=== PATIENT | female | born 1995 ===

== ENCOUNTER 2017-07-18 15:36 | Emergency (ER) | payer MEDICAID, OTHER ==
[2017-07-18 15:47] VITALS: RESP 18
--- NOTE | 2017-07-18 16:22 | C.PDOC ---
History Of Present Illness Patient is a 22 y/o female with a past medical history of asthma, fibromyalgia, depression, suicidal ideation, and migraines, who presents complaining of intermittent weakness for the past 8 months. States she recently moved to [place] to be improve her healthcare. Ever since 8 months ago patient has been having paralysis, first of her lower extremities and now including her upper extremities. She states symptoms come and go spontaneously. By the time she arrived at the ER today she felt she couldnt move from the neck down. On arrival patient is not complaining of pain. Denies any fever, chills, nausea, vomiting, chest pain, SOB, or abdominal pain. She previously was evaluated by a neurologist in [place]. Took Cymbalta at noon today with no improvement. States the last time she felt suicidal was last year. Currently denies suicidal or homicidal ideation. PMD: None Time Seen by Provider: 07/18/17 16:19 Chief Complaint (Nursing): Anxiety History Per: Patient History/Exam Limitations: no limitations Onset/Duration Of Symptoms: Days (x 8 months) Current Symptoms Are (Timing): Still Present Associated Symptoms: denies: Suicidal Thoughts Past Medical History Reviewed: Historical Data, Nursing Documentation, Vital Signs Vital Signs: Last Vital Signs Temp 98.5 F 07/18/17 15:41 Pulse 84 07/18/17 15:41 Resp 18 07/18/17 15:41 BP 145/90 07/18/17 15:41 Pulse Ox 95 07/18/17 17:05 - Medical History PMH: Asthma, Depression, Fibromyalgia, Migraine Surgical History: Family History: States: No Known Family Hx - Social History Hx Tobacco Use: No Hx Alcohol Use: No Hx Substance Use: Yes (marijuana) - Immunization History Hx Tetanus Toxoid Vaccination: No Hx Influenza Vaccination: No Hx Pneumococcal Vaccination: No Review Of Systems Except As Marked, All Systems Reviewed And Found Negative. Constitutional: Negative for: Fever, Chills Cardiovascular: Negative for: Chest Pain Respiratory: Negative for: Shortness of Breath Gastrointestinal: Negative for: Nausea, Vomiting, Abdominal Pain Neurological: Positive for: Weakness (paralysis of all extremities intermittently). Negative for: Numbness Psych: Negative for: Suicidal ideation Physical Exam - Physical Exam Appears: Non-toxic, No Acute Distress, Other (Calm, conversational, cooperative) Skin: Normal Color, Warm, Dry Head: Atraumatic Eye(s): bilateral: Normal Inspection, PERRL, EOMI Nose: Normal Neck: Normal, Supple Chest: Symmetrical Cardiovascular: Rhythm Regular, No Murmur Respiratory: Normal Breath Sounds (clear to auscultation), No Rales, No Rhonchi , No Wheezing Gastrointestinal/Abdominal: Soft, No Tenderness, No Distention Extremity: No Pedal Edema, No Deformity, Other (Patient has sensation. When arm is raised, she supports it and puts it down gently. Able to move lower extremities) Neurological/Psych: Oriented x3, Normal Speech, Normal Sensation Gait: Unable To Assess Extremity: Upper: No Drift (Unable to assess), Lower: No Drift ED Course And Treatment - Laboratory Results Result Diagrams: 07/18/17 17:18 07/18/17 17:18 O2 Sat by Pulse Oximetry: 95 (RA) Pulse Ox Interpretation: Normal Medical Decision Making Medical Decision Making: Initial Impression: Somatization Time: 16:55 Initial Plan: * Alcohol serum * Urine drug screen * CMP * CBC * Urine HCG, qualitative * Urinalysis * Ativan 1 mg PO * Will discuss with make up worker/psychiatry Disposition Counseled Patient/Family Regarding: Need For Followup - Disposition Referrals: Oliverio Golden MD [Staff Provider] - Disposition: HOME/ ROUTINE Disposition Time: 18:23 Condition: STABLE Additional Instructions: Please follow up with psychiatry and neurology as indicated. Forms: [facility] (Citizen [place]), General Discharge Instructions, Work Excuse - POA Present On Arrival: None - Clinical Impression Clinical Impression: Anxiety - Scribe Statement The provider has reviewed the documentation as recorded by the Scribe (Kamilla Lane) Provider Attestation: All medical record entries made by the Scribe were at my direction and personally dictated by me. I have reviewed the chart and agree that the record accurately reflects my personal performance of the history, physical exam, medical decision making, and the department course for this patient. I have also personally directed, reviewed, and agree with the discharge instructions and disposition.
[2017-07-18 17:21] LABS: BASO % 0.2 % (0.0-2.0); EOS % 0.1 % (0.0-4.0); HEMOGLOBIN 11.7 g/dL (11.0-16.0); LYMPH # 1.5 K/uL (1.0-4.3); LYMPH % 13.3 % (20.0-40.0); MEAN CELL VOLUME 83.8 fL (81.0-99.0); MEAN CORPUSCULAR HEMOGLOBIN 28.1 pg (27.0-31.0); MEAN CORPUSCULAR HGB CONC 33.6 g/dL (33.0-37.0); MONO # 0.6 K/uL (0.0-0.8); MONO % 4.8 % (0.0-10.0); NEUT # 9.3 K/uL (1.8-7.0); NEUT % 81.6 % (50.0-75.0); RBC 4.16 Mil/uL (3.80-5.20); WHITE BLOOD COUNT 11.4 K/uL (4.8-10.8)
[2017-07-18 17:33] LABS: ALB/GLOB RATIO 1.2 (1.0-2.1); ALBUMIN 4.3 g/dL (3.5-5.0); ALT/SGPT 32 U/L (9-52); AST/SGOT 20 U/L (14-36); BLOOD UREA NITROGEN 11 mg/dL (7-17); CALCIUM 9.4 mg/dl (8.6-10.4); GFR AFRICAN-AMERICAN > 60; GFR NON-AFRICAN AMERICAN > 60
[2017-07-18 17:47] LABS: HCG,QUALITATIVE URINE NEGATIVE (NEGATIVE)
[2017-07-18 17:49] LABS: SQUAMOUS EPITHIAL 1 /hpf (0-5); URINE BACTERIA RARE (<OCC); URINE BILIRUBIN NEGATIVE (NEGATIVE); URINE BLOOD NEGATIVE (NEGATIVE); URINE CLARITY Hazy (Clear); URINE COLOR Yellow (YELLOW); URINE GLUCOSE (UA) NORMAL (Normal); URINE LEUKOCYTE ESTERASE NEG Leu/uL (Negative); URINE NITRATE NEGATIVE (NEGATIVE); URINE PROTEIN 1+ mg/dL (NEGATIVE); URINE UROBILINOGEN NORMAL mg/dL (0.2-1.0)
[2017-07-18 18:01] LABS: BARBITURATES, UR NEGATIVE (NEGATIVE); BENZODIAZEPINES, UR NEGATIVE (NEGATIVE); OPIATES, UR NEGATIVE (NEGATIVE); PHENCYCLIDINE, UR NEGATIVE (NEGATIVE)
[2017-07-18 18:50] VITALS: BP 116/68; PULSE 92; TEMP 98.3; O2SAT 98
== END 2017-07-18 18:42 | disposition home or self-care (01) ==
LOC: C.ER 15:36
DX: F41.9 Anxiety disorder, unspecified (principal)
CPT/HCPCS: 80053; 81001; 84703; 85025; 99284; G0480

== ENCOUNTER 2017-08-29 14:27 | Emergency (ER) | payer MEDICAID, OTHER ==
[2017-08-29 14:53] VITALS: TEMP 97.4; O2SAT 100
[2017-08-29 17:03] LABS: SQUAMOUS EPITHIAL 3 /hpf (0-5); URINE BACTERIA RARE (<OCC); URINE BILIRUBIN NEGATIVE (NEGATIVE); URINE BLOOD 1+ (NEGATIVE); URINE CLARITY Hazy (Clear); URINE COLOR Yellow (YELLOW); URINE GLUCOSE (UA) NORMAL (Normal); URINE LEUKOCYTE ESTERASE 1+ Leu/uL (Negative); URINE PROTEIN NEGATIVE (NEGATIVE); URINE UROBILINOGEN NORMAL mg/dL (0.2-1.0)
[2017-08-29 17:06] LABS: HCG,QUALITATIVE URINE NEGATIVE (NEGATIVE)
[2017-08-29 17:13] LABS: BARBITURATES, UR NEGATIVE (NEGATIVE); BENZODIAZEPINES, UR NEGATIVE (NEGATIVE); OPIATES, UR NEGATIVE (NEGATIVE); PHENCYCLIDINE, UR NEGATIVE (NEGATIVE)
--- NOTE | 2017-08-29 17:40 | C.PDOC ---
History Of Present Illness 22 y/o female ,w/ PMhx of fibromyalgia, presents to the ER complaining of chronic generalized body pain. Patient states that she has been by multiple physicians for her pain.She was diagnosed with fibromyalgia and given medications including Cymbalta. Patient reports that she does not feel improvement with the the medications. Patient denies having fever, chills, nausea, and vomiting. Time Seen by Provider: 08/29/17 15:47 Chief Complaint (Nursing): Pain, Chronic History Per: Patient History/Exam Limitations: no limitations Onset/Duration Of Symptoms: Days Current Symptoms Are (Timing): Still Present Severity: Moderate Past Medical History Reviewed: Historical Data, Nursing Documentation, Vital Signs Vital Signs: Last Vital Signs Temp 97.4 F L 08/29/17 14:51 Pulse 112 H 08/29/17 17:51 Resp 18 08/29/17 17:51 BP 106/72 08/29/17 17:51 Pulse Ox 100 08/29/17 18:16 - Medical History PMH: Asthma, Depression, Fibromyalgia, Migraine Denies: Diabetes, Hepatitis, HIV, HTN, Seizures, Sexually Transmitted Disease Surgical History: Family History: States: No Known Family Hx - Social History Hx Tobacco Use: No Hx Alcohol Use: No Hx Substance Use: Yes (marijuana) - Immunization History Hx Tetanus Toxoid Vaccination: No Hx Influenza Vaccination: No Hx Pneumococcal Vaccination: No Review Of Systems Except As Marked, All Systems Reviewed And Found Negative. Constitutional: Positive for: Other (generalized body pain). Negative for: Fever, Chills Physical Exam - Physical Exam Appears: Non-toxic, No Acute Distress Skin: Normal Color, Warm, Dry Head: Atraumatic, Normacephalic Eye(s): bilateral: Normal Inspection Nose: Normal Oral Mucosa: Moist Neck: Supple Chest: Symmetrical Cardiovascular: Rhythm Regular Respiratory: Normal Breath Sounds, No Rales, No Rhonchi, No Wheezing Gastrointestinal/Abdominal: Normal Exam, Soft, No Tenderness Back: Normal Inspection, No CVA Tenderness Neurological/Psych: Oriented x3, Normal Speech ED Course And Treatment O2 Sat by Pulse Oximetry: 100 (RA) Pulse Ox Interpretation: Normal Medical Decision Making Medical Decision Making: Plan: --Motrin PO --Tylenol PO --Valium PO --UDS --UA Disposition Counseled Patient/Family Regarding: Diagnosis, Need For Followup, Rx Given - Disposition Referrals: [facility] [Outside] Disposition: HOME/ ROUTINE Disposition Time: 17:39 Condition: STABLE Prescriptions: diaZEpam [Valium] 5 mg PO TID #12 tab Ibuprofen [Motrin] 600 mg PO TID #15 tab Instructions: Fibromyalgia (DC) Forms: General Discharge Instructions, [facility] (Tajik), Work Excuse - POA Present On Arrival: None - Clinical Impression Clinical Impression: Fibromyalgia - Scribe Statement The provider has reviewed the documentation as recorded by the Claudia Oshea Provider Attestation: All medical record entries made by the Claudia were at my direction and personally dictated by me. I have reviewed the chart and agree that the record accurately reflects my personal performance of the history, physical exam, medical decision making, and the department course for this patient. I have also personally directed, reviewed, and agree with the discharge instructions and disposition.
[2017-08-29 17:52] VITALS: BP 106/72; PULSE 112; RESP 18
== END 2017-08-29 17:52 | disposition home or self-care (01) ==
LOC: C.ER 14:27
DX: M79.7 Fibromyalgia (principal)

== ENCOUNTER 2017-11-14 14:33 | Emergency (ER) | payer MEDICAID, OTHER ==
[2017-11-14 14:55] VITALS: BP 113/72; PULSE 83; TEMP 98.4; O2SAT 99
--- NOTE | 2017-11-14 15:35 | C.PDOC ---
History Of Present Illness 22 year old female, whose PMHx includes Asthma and Fibromyalgia, presents to the ED for evaluation of dizziness. states she has asthma and has been using her pump. Patient also reports mild dizziness and is unsure if she is . Patient and her son (also a patient in the ED) reside in a alf home. She denies fever, chills, vomiting. Time Seen by Provider: 11/14/17 15:10 Chief Complaint (Nursing): Dizziness/Lightheaded History Per: Patient History/Exam Limitations: no limitations Onset/Duration Of Symptoms: Days Current Symptoms Are (Timing): Still Present Additional History Per: Patient Past Medical History Reviewed: Historical Data, Nursing Documentation, Vital Signs Vital Signs: Last Vital Signs Temp 98.4 F 11/14/17 14:51 Pulse 83 11/14/17 14:51 Resp 20 11/14/17 14:51 BP 113/72 11/14/17 14:51 Pulse Ox 99 11/14/17 15:50 - Medical History PMH: Asthma, Depression, Fibromyalgia, Migraine Denies: Diabetes, Hepatitis, HIV, HTN, Seizures, Sexually Transmitted Disease Surgical History: Family History: States: Unknown Family Hx - Social History Hx Tobacco Use: No Hx Alcohol Use: No Hx Substance Use: Yes (marijuana) - Immunization History Hx Tetanus Toxoid Vaccination: No Hx Influenza Vaccination: No Hx Pneumococcal Vaccination: No Review Of Systems Constitutional: Negative for: Fever, Chills Respiratory: Positive for: Cough, Other (asthma exacerbation ) Gastrointestinal: Negative for: Vomiting Neurological: Positive for: Dizziness Physical Exam - Physical Exam Appears: Non-toxic, No Acute Distress Skin: Normal Color, Warm, Dry Head: Atraumatic, Normacephalic Eye(s): bilateral: Normal Inspection Ear(s): Bilateral: Normal Nose: Normal, No Discharge Oral Mucosa: Moist Throat: Normal, No Erythema, No Exudate Neck: Supple Chest: Symmetrical, No Deformity, No Tenderness Cardiovascular: Rhythm Regular, No Murmur Respiratory: Normal Breath Sounds, No Rales, No Rhonchi, No Wheezing Extremity: Normal ROM, Capillary Refill (less than 2 seconds ) Neurological/Psych: Oriented x3, Normal Speech, Normal Cognition ED Course And Treatment - Laboratory Results Result Diagrams: 11/14/17 16:42 11/14/17 16:42 O2 Sat by Pulse Oximetry: 99 (on RA) Pulse Ox Interpretation: Normal Medical Decision Making Medical Decision Making: Progress: Bloodwork and urinalysis ordered and reviewed. in er pt noted to be , iup confirmed, no fhr, case discussed with dr alejandor, will need outpt for early preg vs demise. updated pt. no bleeding in er. lungs cta. no active asthma exacerbation. Disposition - Disposition Referrals: [facility] [Outside] [facility] [Outside] [facility] [Outside] Disposition: HOME/ ROUTINE Disposition Time: 03:00 Condition: STABLE Additional Instructions: please follow up with your doctor, you will need repeat testing with obgyn to monitor your fetus. return to er with any worsening symptoms or concerns. Instructions: Threatened Miscarriage Forms: [employer] (Ukrainian) - Clinical Impression Clinical Impression: Dizziness
[2017-11-14 15:55] LABS: SQUAMOUS EPITHIAL 2 /hpf (0-5); URINE BACTERIA RARE (<OCC); URINE BILIRUBIN NEGATIVE (NEGATIVE); URINE BLOOD NEGATIVE (NEGATIVE); URINE CLARITY Hazy (Clear); URINE COLOR Yellow (YELLOW); URINE GLUCOSE (UA) NORMAL (Normal); URINE LEUKOCYTE ESTERASE TRACE Leu/uL (Negative); URINE PROTEIN NEGATIVE (NEGATIVE); URINE UROBILINOGEN NORMAL mg/dL (0.2-1.0)
[2017-11-14 16:50] LABS: BASO # 0.1 K/uL (0.0-0.2); BASO % 0.6 % (0.0-2.0); EOS # 0.1 K/uL (0.0-0.7); EOS % 1.6 % (0.0-4.0); LYMPH # 2.2 K/uL (1.0-4.3); MEAN CELL VOLUME 85.7 fL (81.0-99.0); MEAN CORPUSCULAR HEMOGLOBIN 29.4 pg (27.0-31.0); MEAN CORPUSCULAR HGB CONC 34.3 g/dL (33.0-37.0); MEAN PLATELET VOLUME 7.9 fL (7.2-11.7); MONO # 0.5 K/uL (0.0-0.8); MONO % 5.7 % (0.0-10.0); NEUT # 5.6 K/uL (1.8-7.0); NEUT % 66.1 % (50.0-75.0); RBC 3.76 Mil/uL (3.80-5.20); RED CELL DISTRIBUTION WIDTH 13.7 % (11.5-14.5); WHITE BLOOD COUNT 8.5 K/uL (4.8-10.8)
[2017-11-14 17:03] LABS: ALB/GLOB RATIO 1.5 (1.0-2.1); ALBUMIN 4.2 g/dL (3.5-5.0); ALT/SGPT 28 U/L (9-52); AST/SGOT 20 U/L (14-36); BLOOD UREA NITROGEN 8 mg/dL (7-17); GFR AFRICAN-AMERICAN > 60; GFR NON-AFRICAN AMERICAN > 60
[2017-11-14 17:18] LABS: INR 1.2
[2017-11-14] MEDS ORDERED: Potassium Chloride 20 mEq ER Tab PO STA (17:25)
[2017-11-14] MEDS ORDERED: Potassium Chloride 20 mEq ER Tab PO ONE (17:51)
--- NOTE | 2017-11-14 18:02 | US ---
PROCEDURE: OB Pelvic Ultrasound HISTORY: and abd pain LMP: 10/10/2017 COMPARISON: None available. FINDINGS: UTERUS: Gestational sac: Single intrauterine gestation. Measures 0.7 cm Yolk sac: Not visualized pole: [place]-rump length measures 0.3 cm compatible with estimated gestational age of 5 weeks, 6 days Heart rate: Not yet identified. age (Ultrasound estimated): Five weeks, 6 days Tatianna-gestational hemorrhage: None. Date of delivery (Ultrasound estimated) : Uterus measures 8.5 x 5.1 x 5.5 cm. Normal in size and appearance. CERVIX: Measures 3.2 cm. Long and closed. No cervical abnormality seen. RIGHT OVARY: Measures 4.9 x 3.4 x 4.3 cm. Multiple cysts/follicles, the largest measures 2.8 x 2.5 x 2.9 cm. Normal flow. LEFT OVARY: Measures 2.5 x 1.9 x 2.2 cm. No solid mass. Normal flow. FREE FLUID: None. OTHER FINDINGS: None. IMPRESSION: Intrauterine gestational sac with possible pole measuring up to 3 mm compatible with estimated gestational age of 5 weeks, 6 days. heart rate not yet detected. Findings may represent early normal/ abnormal . Close clinical follow-up with serial pelvic sonography and serum beta HCG levels is recommended.
[2017-11-14 18:51] VITALS: RESP 18
== END 2017-11-14 18:51 | disposition home or self-care (01) ==
LOC: C.ER 14:33
DX: R42 Dizziness and giddiness (principal)

== ENCOUNTER 2018-01-02 11:44 | Emergency (ER) | payer OTHER ==
[2018-01-02 11:57] VITALS: O2SAT 98
[2018-01-02 13:19] LABS: BASO % 0.3 % (0.0-2.0); EOS # 0.1 K/uL (0.0-0.7); EOS % 0.8 % (0.0-4.0); HEMOGLOBIN 12.1 g/dL (11.0-16.0); LYMPH # 1.9 K/uL (1.0-4.3); LYMPH % 23.9 % (20.0-40.0); MEAN CELL VOLUME 86.9 fL (81.0-99.0); MEAN CORPUSCULAR HEMOGLOBIN 29.6 pg (27.0-31.0); MEAN CORPUSCULAR HGB CONC 34.1 g/dL (33.0-37.0); MEAN PLATELET VOLUME 7.7 fL (7.2-11.7); MONO # 0.3 K/uL (0.0-0.8); MONO % 4.1 % (0.0-10.0); NEUT # 5.5 K/uL (1.8-7.0); NEUT % 70.9 % (50.0-75.0); NRBC % 0.1 % (0.0-2.0); RBC 4.08 Mil/uL (3.80-5.20); RED CELL DISTRIBUTION WIDTH 13.7 % (11.5-14.5); WHITE BLOOD COUNT 7.8 K/uL (4.8-10.8)
[2018-01-02 13:26] LABS: URINE BILIRUBIN NEGATIVE (NEGATIVE); URINE BLOOD NEGATIVE (NEGATIVE); URINE CLARITY Clear (Clear); URINE COLOR YELLOW (YELLOW); URINE GLUCOSE (UA) NEGATIVE (Normal); URINE LEUKOCYTE ESTERASE NEGATIVE Leu/uL (Negative); URINE PROTEIN NEGATIVE (NEGATIVE); URINE UROBILINOGEN 0.2 mg/dL (0.2-1.0)
[2018-01-02 13:34] LABS: ALB/GLOB RATIO 1.3 (1.0-2.1); ALT/SGPT 21 U/L (9-52); AST/SGOT 18 U/L (14-36); BLOOD UREA NITROGEN 6 mg/dL (7-17); GFR NON-AFRICAN AMERICAN > 60
--- NOTE | 2018-01-02 14:15 | US ---
Renal ultrasound History: Urinary tract infection. Bilateral flank pain. Comparison: None available. Technique: Real-time sonography was performed through the kidneys. Findings: Right kidney: 11.9 x 5.6 x 4.2 centimeters. Normal echogenicity. No calculi or hydronephrosis. Left Kidney: 12.7 x 4.8 x 5.1 centimeters. Normal echogenicity. No calculi or hydronephrosis. Visualized aorta grossly preserved. Underdistended urinary bladder limits evaluation. Impression: Unremarkable sonographic evaluation of the kidneys.
--- NOTE | 2018-01-02 14:20 | US ---
Pelvic ultrasound History: Pelvic pain. Suprapubic pain. Dysuria. Comparison: None available. Technique: Real-time sonography was performed through the pelvis utilizing transabdominal technique. Findings: Uterus: 12.2 x 9.4 x 10.9 centimeters. Normal echogenicity. Anteverted. Cervix measures 3.1 centimeters. Intrauterine with crown-rump length measuring 5.1 centimeters corresponding to a gestational age of 11 weeks and 6 days. Yolk sac identified. heart rate of 148 beats per minute. Right ovary: 5.8 x 3.2 x 4.8 centimeters. Normal flow. Hypoechoic cysts measuring 3.9 x 2.4 x 2.5 centimeters and 2.3 x 2.1 x 2.2 centimeters respectively. Left ovary: 2.8 x 1.2 x 2.6 centimeters. Normal flow. Impression: Intrauterine corresponding to a gestational age of 11 weeks 6 days by crown-rump length of 5.1 centimeters. heart rate of 148 beats per minute. Right ovarian cysts measuring up to 3.9 x 2.3 centimeters respectively. Limited 1st trimester ultrasound for viability purposes only. Continued interval followup with serial ultrasound, serial HCG levels, and gynecological consultation would be helpful if clinically indicated.
[2018-01-02 15:19] VITALS: BP 113/63; PULSE 74; RESP 18; TEMP 98.9
--- NOTE | 2018-01-02 15:19 | C.PDOC ---
History Of Present Illness 22 y/o female patient presents to the ED with c/o a UTI for the past two weeks. Patient is 12 weeks ; ( A1). She reports that symptoms have worsened after completing course of antibiotics. She is experiencing constant suprapubic pain associated with bilateral flank pain. Denies fever, trauma, vaginal bleeding or vaginal discharge. Time Seen by Provider: 01/02/18 12:49 Chief Complaint (Nursing): Female Genitourinary History Per: Patient History/Exam Limitations: no limitations Current Symptoms Are (Timing): Still Present Severity: Mild Pain Scale Rating Of: 3 Quality Of Discomfort: "Pain" Associated Symptoms: Other (suprapubic pain (+) bilateral flank pain ). denies : Fever, Chills, Diarrhea Alleviating Factors: None Recent travel outside of the [place]: No : 3 Para: 1 Miscarriage: 1 Past Medical History Reviewed: Historical Data, Nursing Documentation, Vital Signs Vital Signs: Last Vital Signs Temp 98.9 F 01/02/18 15:16 Pulse 74 01/02/18 15:16 Resp 18 01/02/18 15:16 BP 113/63 01/02/18 15:16 Pulse Ox 98 01/02/18 21:31 - Medical History PMH: Asthma, Depression, Fibromyalgia, Migraine Surgical History: Family History: States: Unknown Family Hx - Social History Hx Tobacco Use: No Hx Alcohol Use: No Hx Substance Use: Yes (marijuana) - Immunization History Hx Tetanus Toxoid Vaccination: No Hx Influenza Vaccination: No Hx Pneumococcal Vaccination: No Review Of Systems Constitutional: Negative for: Fever, Chills, Sweats Gastrointestinal: Positive for: Abdominal Pain (suprapubic), Other ((+) flank pain bilaterally). Negative for: Nausea, Vomiting, Diarrhea Genitourinary: Negative for: Frequency, Vaginal Discharge, Vaginal Bleeding Physical Exam - Physical Exam Appears: No Acute Distress Skin: Warm, Dry Head: Atraumatic, Normacephalic Eye(s): bilateral: PERRL, EOMI Oral Mucosa: Moist Neck: Supple Chest: Symmetrical Cardiovascular: Rhythm Regular Respiratory: No Rales, No Rhonchi, Other (Clear to auscultation) Gastrointestinal/Abdominal: Soft, No Tenderness, No Distention, No Guarding Back: No CVA Tenderness Extremity: Normal ROM, No Tenderness Extremity: Bilateral: Atraumatic Neurological/Psych: Oriented x3, Other (Patient is alert and oriented x3.) ED Course And Treatment - Laboratory Results Result Diagrams: 01/02/18 13:09 01/02/18 13:09 O2 Sat by Pulse Oximetry: 98 (RA) Pulse Ox Interpretation: Normal - Other Rad Renal US Interpretation: Unremarkable sonographic evaluation of the kidneys. - CT Scan/US US Obstetric Other Rad Studies (CT/US): Read By Radiologist CT/US Interpretation: Intrauterine corresponding to a gestational age of 11 weeks 6 days by crown-rump length of 5.1 centimeters. heart rate of 148 beats per minute. Right ovarian cysts measuring up to 3.9 x 2.3 centimeters respectively. Limited 1st trimester ultrasound for viability purposes only. Continued interval followup with serial ultrasound, serial HCG levels, and gynecological consultation would be helpful if clinically indicated. Progress Note: Physical exam was unremarkable. UA, Urine Culture, Renal US, Pelvic US, labs and tylenol ordered. During re-evaluation, patient notes that symptoms resolved and was advised to follow up with PCP/OBGYN. She was advised to return to the ED, if symptoms worsen or persist. Disposition - Disposition Referrals: [facility] [Outside] [place] [employer] [facility] [Outside] Disposition: HOME/ ROUTINE Disposition Time: 15:16 Condition: GOOD Additional Instructions: Follow up with the OBGYN within 1-2 days, Return if worsened. Prescriptions: Acetaminophen [Tylenol] 325 mg PO Q6 PRN #30 tab PRN Reason: Pain, Mild (1-3) Instructions: Low Back Pain (DC) Forms: [facility] (Pashto) - Clinical Impression Clinical Impression: Back pain, Abdominal pain - PA / WIRE SPOOLER / Resident Statement MD/DO has reviewed & agrees with the documentation as recorded. - Scribe Statement The provider has reviewed the documentation as recorded by the Scribe (Tim Gonzalez) All medical record entries made by the Scribe were at my direction and personally dictated by me. I have reviewed the chart and agree that the record accurately reflects my personal performance of the history, physical exam, medical decision making, and the department course for this patient. I have also personally directed, reviewed, and agree with the discharge instructions and disposition.
== END 2018-01-02 15:30 | disposition home or self-care (01) ==
LOC: C.ER 11:44
DX: O26.91 Pregnancy related conditions, unspecified, first trimester (principal); M54.9 Dorsalgia, unspecified; R10.9 Unspecified abdominal pain; Z3A.11 11 weeks gestation of pregnancy

== ENCOUNTER 2018-01-25 20:17 | Emergency (ER) | payer OTHER ==
[2018-01-25 20:23] VITALS: O2SAT 100
[2018-01-25 20:41] LABS: BASO # 0.1 K/uL (0.0-0.2); BASO % 0.6 % (0.0-2.0); EOS # 0.1 K/uL (0.0-0.7); HEMOGLOBIN 12.2 g/dL (11.0-16.0); LYMPH # 2.9 K/uL (1.0-4.3); LYMPH % 32.4 % (20.0-40.0); MEAN CELL VOLUME 85.7 fL (81.0-99.0); MEAN CORPUSCULAR HEMOGLOBIN 30.2 pg (27.0-31.0); MEAN CORPUSCULAR HGB CONC 35.2 g/dL (33.0-37.0); MEAN PLATELET VOLUME 7.4 fL (7.2-11.7); MONO # 0.5 K/uL (0.0-0.8); MONO % 5.8 % (0.0-10.0); NEUT # 5.4 K/uL (1.8-7.0); NEUT % 60.2 % (50.0-75.0); NRBC % 0.1 % (0.0-2.0); RBC 4.03 Mil/uL (3.80-5.20); RED CELL DISTRIBUTION WIDTH 13.1 % (11.5-14.5)
--- NOTE | 2018-01-25 20:54 | C.PDOC ---
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 She reports being 15 weeks .The patient had an ultrasound done on that showed an intrauterine with heart. She has a . The patient admits to clots within the vaginal bleeding and associated pelvic cramping. She denies any other symptoms at this time. 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 EGA 15 WKS. S/P US 01/20 +IUP W FH. . +CLOTS, PELVIC CRAMPING. NO OTHER ASSOC SX EXAM NAD NONTOXIC HEENT NO PALLOR ABD NEG REMAINDER NEG Time Seen by Provider: 01/25/18 20:25 Chief Complaint (Nursing): Female Genitourinary History Per: Patient History/Exam Limitations: no limitations Onset/Duration Of Symptoms: Hrs Current Symptoms Are (Timing): Still Present Associated Symptoms: denies: Fever, Nausea, Vomiting Recent travel outside of the [place]: No : 3 Para: 1 Past Medical History Reviewed: Historical Data, Nursing Documentation, Vital Signs Vital Signs: Last Vital Signs Temp 98.6 F 01/25/18 22:24 Pulse 73 01/25/18 22:24 Resp 18 01/25/18 22:24 BP 116/60 01/25/18 22:24 Pulse Ox 100 01/25/18 22:54 - Medical History PMH: Asthma, Depression, Fibromyalgia, Migraine Denies: Diabetes, Hepatitis, HIV, HTN, Seizures, Sexually Transmitted Disease Surgical History: Family History: States: Unknown Family Hx - Social History Hx Tobacco Use: No Hx Alcohol Use: No Hx Substance Use: No - Immunization History Hx Tetanus Toxoid Vaccination: No Hx Influenza Vaccination: No Hx Pneumococcal Vaccination: No Review Of Systems Except As Marked, All Systems Reviewed And Found Negative. Constitutional: Negative for: Fever Gastrointestinal: Negative for: Nausea, Vomiting Genitourinary: Positive for: Vaginal Bleeding (with clots), Pelvic Pain ( cramping) Physical Exam - Physical Exam Appears: Non-toxic, No Acute Distress Skin: Normal Color, Warm, No Other (Pallor) Head: Atraumatic, Normacephalic Eye(s): bilateral: PERRL, EOMI Ear(s): Bilateral: Normal Oral Mucosa: Moist Neck: Normal ROM Chest: Symmetrical Cardiovascular: Rhythm Regular, No Murmur Respiratory: No Rales, No Rhonchi, No Wheezing, Other (NARD) Gastrointestinal/Abdominal: Bowel Sounds, Soft, No Tenderness Extremity: Normal ROM Extremity: Bilateral: Atraumatic, Normal Color And Temperature, Normal ROM Pulses: Left Radial: Normal, Right Radial: Normal Neurological/Psych: Oriented x3, Normal Speech Gait: Steady ED Course And Treatment - Laboratory Results Result Diagrams: 01/25/18 20:37 01/25/18 20:37 O2 Sat by Pulse Oximetry: 100 (RA) Pulse Ox Interpretation: Normal - CT Scan/US Uterus Other Rad Studies (CT/US): Read By Radiologist, Radiology Report Reviewed CT/US Interpretation: IMPRESSION: 1. Single living intrauterine . 2. Gestational age 15 weeks 3 days RILEY 07/16/2018. 3. cervix measures 3.1 cm Progress - Re-Evaluation Re-evaluation Note: 01/25/18 22:31 - Data Reviewed Data Reviewed: Lab, Diagnostic imaging, Old records Medical Decision Making Medical Decision Making: Impression: 23 y/o female, 15 weeks , with vaginal bleeding and pelvic cramping Plan: -BBK -HCG -CMP -CBC -UA -Pelvis Ultrasound -Transvaginal US Disposition Counseled Patient/Family Regarding: Studies Performed, Diagnosis, Need For Followup - Disposition Referrals: YOUR,OBGYN [Other] Disposition: HOME/ ROUTINE Disposition Time: 22:53 Condition: GOOD Instructions: Threatened Miscarriage (DC) Forms: Work/School/Gym Excuse, [facility] ([place]) - Clinical Impression Clinical Impression: Threatened miscarriage - PA / PRE SALES ARCHITECT / Resident Statement MD/DO has reviewed & agrees with the documentation as recorded. - Scribe Statement The provider has reviewed the documentation as recorded by the Scribe (Velma Montanez) All medical record entries made by the Scribe were at my direction and personally dictated by me. I have reviewed the chart and agree that the record accurately reflects my personal performance of the history, physical exam, medical decision making, and the department course for this patient. I have also personally directed, reviewed, and agree with the discharge instructions and disposition.
[2018-01-25 21:17] LABS: ALB/GLOB RATIO 1.3 (1.0-2.1); ALT/SGPT 24 U/L (9-52); AST/SGOT 12 U/L (14-36); BLOOD UREA NITROGEN 8 mg/dL (7-17); CALCIUM 9.5 mg/dl (8.6-10.4); GFR NON-AFRICAN AMERICAN > 60
[2018-01-25 22:20] LABS: SQUAMOUS EPITHIAL 5 /hpf (0-5); URINE BACTERIA RARE (<OCC); URINE BILIRUBIN NEGATIVE (NEGATIVE); URINE BLOOD 1+ (NEGATIVE); URINE CALCIUM OXALATE CRYSTALS FEW /hpf (<OCC); URINE CLARITY Hazy (Clear); URINE COLOR Yellow (YELLOW); URINE GLUCOSE (UA) NORMAL (Normal); URINE LEUKOCYTE ESTERASE TRACE Leu/uL (Negative); URINE PROTEIN NEGATIVE (NEGATIVE); URINE UROBILINOGEN NORMAL mg/dL (0.2-1.0)
[2018-01-25 22:24] VITALS: BP 116/60; PULSE 73; RESP 18; TEMP 98.6
--- NOTE | 2018-01-26 10:46 | US ---
OB , limited Comparison: OB , limited performed 01/20/18 Technique: Real-time ultrasound was performed through the pelvis. Findings: There is a single living fetus in breech presentation. Posterior placenta. The placenta placenta appears low lying (approximately 1.6 cm from the cervix) at this time. There are no adnexal masses or cysts evident. Cervix length measures approximately 3.1 cm. Measurements and calculations: Fetus has a composite sonographic age of 15 weeks 3 days. This calculation is based on the biparietal diameter, head circumference, abdominal circumference, and femur length. Estimated heart rate 127.8 beats per min. Impression: Single living fetus with a composite sonographic age of 15 weeks 3 days. Estimated heart rate 127.8 beats per min. Advise an anomaly screen at 16-18 weeks gestational age Preliminary impression was provided by virtual radiologic.
== END 2018-01-25 23:05 | disposition home or self-care (01) ==
LOC: C.ER 20:17
DX: O20.0 Threatened abortion (principal); Z3A.15 15 weeks gestation of pregnancy

== ENCOUNTER 2018-02-09 22:59 | Emergency (ER) | payer OTHER ==
[2018-02-09 23:16] VITALS: RESP 16
[2018-02-09 23:54] LABS: SQUAMOUS EPITHIAL 3 /hpf (0-5); URINE BACTERIA RARE (<OCC); URINE BILIRUBIN NEGATIVE (NEGATIVE); URINE BLOOD NEGATIVE (NEGATIVE); URINE CLARITY Clear (Clear); URINE COLOR Yellow (YELLOW); URINE GLUCOSE (UA) NORMAL (Normal); URINE LEUKOCYTE ESTERASE NEG Leu/uL (Negative); URINE PROTEIN NEGATIVE (NEGATIVE); URINE UROBILINOGEN NORMAL mg/dL (0.2-1.0)
[2018-02-10 00:21] LABS: BASO # 0.1 K/uL (0.0-0.2); BASO % 0.6 % (0.0-2.0); EOS # 0.1 K/uL (0.0-0.7); EOS % 0.7 % (0.0-4.0); HEMOGLOBIN 11.8 g/dL (11.0-16.0); LYMPH % 29.4 % (20.0-40.0); MEAN CELL VOLUME 85.3 fL (81.0-99.0); MEAN CORPUSCULAR HEMOGLOBIN 29.9 pg (27.0-31.0); MEAN PLATELET VOLUME 8.3 fL (7.2-11.7); MONO # 0.5 K/uL (0.0-0.8); MONO % 5.1 % (0.0-10.0); NEUT # 6.6 K/uL (1.8-7.0); NEUT % 64.2 % (50.0-75.0); RBC 3.95 Mil/uL (3.80-5.20); RED CELL DISTRIBUTION WIDTH 13.2 % (11.5-14.5); WHITE BLOOD COUNT 10.3 K/uL (4.8-10.8)
[2018-02-10 00:37] LABS: ALB/GLOB RATIO 1.1 (1.0-2.1); ALBUMIN 3.7 g/dL (3.5-5.0); ALT/SGPT < 6 U/L (9-52); AST/SGOT 22 U/L (14-36); BLOOD UREA NITROGEN 11 mg/dL (7-17); CALCIUM 8.6 mg/dl (8.6-10.4); GFR NON-AFRICAN AMERICAN > 60; LIPASE 48 U/L (23-300)
--- NOTE | 2018-02-10 01:00 | C.PDOC ---
History Of Present Illness 23 y/o F 17 weeks p/w abdominal pain, lower abdomen radiating to back with nausea and NBNB vomiting x 1 day. Denies fever, chills, chest pain, dyspnea, dysuria, diarrhea. Denies vaginal bleeding or trauma. <Humberto Bhardwaj - Last Filed: 02/10/18 00:58> <Humberto Bhardwaj - Last Filed: 02/10/18 00:58> <KaiNinoskaboston - Last Filed: 02/10/18 02:07> Time Seen by Provider: 02/09/18 23:32 Chief Complaint (Nursing): Abdominal Pain Past Medical History Vital Signs: Last Vital Signs Temp 98.3 F 02/09/18 23:08 Pulse 90 02/09/18 23:08 Resp 16 02/09/18 23:08 BP 109/69 02/09/18 23:08 Pulse Ox 99 02/09/18 23:08 - Medical History PMH: Asthma, Depression, Fibromyalgia, Gall Bladder Disease, Migraine, Chronic Kidney Disease Denies: Diabetes, Hepatitis, HIV, HTN, Seizures, Sexually Transmitted Disease Surgical History: Family History: States: Unknown Family Hx - Social History Hx Tobacco Use: No Hx Alcohol Use: No Hx Substance Use: No - Immunization History Hx Tetanus Toxoid Vaccination: No Hx Influenza Vaccination: No Hx Pneumococcal Vaccination: No <Humberto Bhardwaj Last Filed: 02/10/18 00:58> Vital Signs: Last Vital Signs Temp 98.3 F 02/09/18 23:08 Pulse 90 02/09/18 23:08 Resp 16 02/09/18 23:08 BP 109/69 02/09/18 23:08 Pulse Ox 99 02/10/18 01:00 <Royce Quinn - Last Filed: 02/10/18 02:07> Review Of Systems Except As Marked, All Systems Reviewed And Found Negative. Constitutional: Negative for: Fever Cardiovascular: Negative for: Chest Pain <Humberto Bhardwaj - Last Filed: 02/10/18 00:58> Physical Exam - Physical Exam Additional Physical Exam Comments: Gen: NAD head: NC/AT Eyes: PERRL ENT: MMM Neck: Supple Chest: No tenderness CV: Regular rate Lungs: CTA b/l Abd: Lower abdominal tenderness without gaurding Back: Bilateral CVA tenderness Extremities: No tenderness Skin: No rash Neuro: Alert, no focal deficit <Humberto Bhardwaj - Last Filed: 02/10/18 00:58> ED Course And Treatment - Laboratory Results Result Diagrams: 02/10/18 00:08 02/10/18 00:08 O2 Sat by Pulse Oximetry: 99 <BentonHumberto Escalante - Last Filed: 02/10/18 00:58> - Laboratory Results Result Diagrams: 02/10/18 00:08 02/10/18 00:08 <Royce Quinn - Last Filed: 02/10/18 02:07> Medical Decision Making Medical Decision Making: Labs unremarkable. Pending US. Signed out to ED night team. <Humberto Bhardwaj - Last Filed: 02/10/18 00:58> Disposition <Humberto Bhardwaj - Last Filed: 02/10/18 00:58> Counseled Patient/Family Regarding: Studies Performed, Diagnosis, Need For Followup - Disposition Disposition Time: 01:00 <Royce Quinn - Last Filed: 02/10/18 02:07> - Disposition Referrals: Bertrand AGRAWAL,Carol Hernandez [Non-Staff] - Disposition: HOME/ ROUTINE Condition: FAIR Additional Instructions: Please return if symptoms recur Instructions: Round Ligament Pain Forms: [facility] ([place]) - Clinical Impression Clinical Impression: Abdominal pain during intrauterine
[2018-02-10 02:12] VITALS: BP 110/71; PULSE 77; TEMP 98.4; O2SAT 100
--- NOTE | 2018-02-10 16:59 | US ---
Date of service: 02/10/2018 PROCEDURE: Limited ultrasound HISTORY: 17 wks , abd pain COMPARISON: 01/20/2018 and 01/25/2018 TECHNIQUE: Standard protocol for this study/examination. FINDINGS: Breech presentation. Posterior placenta. No evidence of abruption or previa Gestational age derived from LMP 17 weeks 4 days. RILEY 07/17/2018. Gestational age derived from the following biometric parameters 17 weeks 5 days. RILEY 07/16/2018 Biparietal diameter 3.87 cm Head circumference 13.97 cm Abdominal circumference 12.77 cm Femur length 2.45 cm Estimated weight 212 g Calculated cardiac rate 138 beats per min. Closed cervix measuring 3.73 cm IMPRESSION: 17 weeks 5 days live intrauterine gestation. Gestational concordance documented. Adequate interval progression compared to the prior study. Concordant findings (preliminary report) provided by JOSEPH PEGUERO.
== END 2018-02-10 02:15 | disposition home or self-care (01) ==
LOC: C.ER 22:59
DX: O26.892 Other specified pregnancy related conditions, second trimester (principal); R10.30 Lower abdominal pain, unspecified; Z3A.17 17 weeks gestation of pregnancy

== ENCOUNTER 2018-02-13 18:23 | Emergency (ER) | payer OTHER ==
[2018-02-13 18:30] VITALS: O2SAT 100
[2018-02-13 19:32] LABS: BASO # 0.1 K/uL (0.0-0.2); BASO % 0.6 % (0.0-2.0); EOS # 0.1 K/uL (0.0-0.7); EOS % 0.9 % (0.0-4.0); HEMOGLOBIN 11.4 g/dL (11.0-16.0); LYMPH # 2.8 K/uL (1.0-4.3); MEAN CELL VOLUME 84.3 fL (81.0-99.0); MEAN CORPUSCULAR HEMOGLOBIN 30.1 pg (27.0-31.0); MEAN CORPUSCULAR HGB CONC 35.7 g/dL (33.0-37.0); MEAN PLATELET VOLUME 7.4 fL (7.2-11.7); MONO # 0.5 K/uL (0.0-0.8); MONO % 5.6 % (0.0-10.0); NEUT # 5.9 K/uL (1.8-7.0); NEUT % 62.9 % (50.0-75.0); NRBC % 0.1 % (0.0-2.0); RBC 3.78 Mil/uL (3.80-5.20); RED CELL DISTRIBUTION WIDTH 13.1 % (11.5-14.5); WHITE BLOOD COUNT 9.4 K/uL (4.8-10.8)
[2018-02-13 19:35] LABS: SQUAMOUS EPITHIAL 3 /hpf (0-5); URINE BACTERIA RARE (<OCC); URINE BILIRUBIN NEGATIVE (NEGATIVE); URINE BLOOD NEGATIVE (NEGATIVE); URINE CLARITY Clear (Clear); URINE COLOR Yellow (YELLOW); URINE GLUCOSE (UA) NORMAL (Normal); URINE LEUKOCYTE ESTERASE NEG Leu/uL (Negative); URINE PROTEIN NEGATIVE (NEGATIVE); URINE UROBILINOGEN NORMAL mg/dL (0.2-1.0)
[2018-02-13 19:47] LABS: ALB/GLOB RATIO 1.2 (1.0-2.1); ALBUMIN 3.5 g/dL (3.5-5.0); ALT/SGPT 24 U/L (9-52); AST/SGOT 14 U/L (14-36); BLOOD UREA NITROGEN 7 mg/dL (7-17); GFR NON-AFRICAN AMERICAN > 60
--- NOTE | 2018-02-13 19:55 | C.PDOC ---
History Of Present Illness 23 y/o female presents to the ER complaining of ongoing lower abdominal pain which has been present for the past 2-4 weeks. Patient states that she was preceived Tylenol for pain, she does not take it because she feels that it provides no improvement. Patient has history of 3 [facility] ER visits in the past 30 days. She had a Pelvic US on12/25/17 which showed IUP at 15 weeks with cardiac activity and a repeat US on 02/09/18 which showed IUP at 17 weeks with cardiac activity.Patient states that she has "mucus" vaginal discharge. Denies having fever, chills, nausea, vomiting, and vaginal bleeding. Time Seen by Provider: 02/13/18 18:39 Chief Complaint (Nursing): Abdominal Pain History Per: Patient History/Exam Limitations: no limitations Onset/Duration Of Symptoms: Days Current Symptoms Are (Timing): Still Present Severity: Moderate Past Medical History Reviewed: Historical Data, Nursing Documentation, Vital Signs Vital Signs: Last Vital Signs Temp 98.1 F 02/13/18 18:26 Pulse 79 02/13/18 18:26 Resp 20 02/13/18 18:26 BP 102/63 02/13/18 18:26 Pulse Ox 100 02/13/18 18:26 - Medical History PMH: Asthma, Depression, Fibromyalgia, Gall Bladder Disease, Migraine, Chronic Kidney Disease Denies: Diabetes, Hepatitis, HIV, HTN, Seizures, Sexually Transmitted Disease Surgical History: Family History: States: No Known Family Hx - Social History Hx Tobacco Use: No Hx Alcohol Use: No Hx Substance Use: No - Immunization History Hx Tetanus Toxoid Vaccination: No Hx Influenza Vaccination: No Hx Pneumococcal Vaccination: No Review Of Systems Except As Marked, All Systems Reviewed And Found Negative. Constitutional: Negative for: Fever, Chills Gastrointestinal: Positive for: Abdominal Pain. Negative for: Nausea, Vomiting Genitourinary: Positive for: Vaginal Discharge. Negative for: Vaginal Bleeding Physical Exam - Physical Exam Appears: Other (intermittently in pain) Skin: Normal Color, Warm, Dry Head: Atraumatic, Normacephalic Eye(s): bilateral: Normal Inspection Nose: Normal Oral Mucosa: Moist Neck: Supple Chest: Symmetrical Cardiovascular: Rhythm Regular Respiratory: Normal Breath Sounds, No Rales, No Rhonchi, No Wheezing Gastrointestinal/Abdominal: Soft, Tenderness (lower abdominal tenderness to superficial touch), No Guarding, No Rebound Pelvic: Vaginal Discharge (normal vaginal discharge), Other (exam without speculum, chaperoned by female ) Neurological/Psych: Oriented x3, Normal Speech ED Course And Treatment - Laboratory Results Result Diagrams: 18 19:29 02/13/18 19:29 Lab Interpretation: Normal (ua wnl) O2 Sat by Pulse Oximetry: 100 (RA) Pulse Ox Interpretation: Normal Progress Note: raquel rahman. 19:10 Case discussed with , PRODUCTION BROACHER. Dr. Vanegas reccomends that patient be treated for constipation and provide Tylenol for round ligament pain. Reevaluation Time: 20:01 Reassessment Condition: Improved Medical Decision Making Medical Decision Making: chronic pain syndrome anxiety constipation ? round ligament pain Tylenol laxatives normal IUP with FHT x 2 US exams in past 30 days no vag d/c d/w OB, ok to d/c and opt f/u for pain/anxiety control Disposition Doctor Will See Patient In The: Office Counseled Patient/Family Regarding: Studies Performed, Diagnosis - Disposition Referrals: [facility] [Outside] [facility] [Outside] [facility] [Outside] [facility] [Outside] [facility] [Outside] Disposition Time: 20:02 Additional Instructions: urinalysis and labs normal Recommend Tylenol 1000 mg every 6 hours as needed for lower abd discomfort ? related to Round ligament streching Trial a laxative now (Recommend a bottle of Mag Citrate) and re-evaluate your abdominal discomfort after using the bathrooom 2-3 times. Diet and exercise changes Outpatient follow-up with OBGYN/OB Clinic ([place]) Instructions: Chronic Pain (DC), Symptoms, - The Fifth Month, Round Ligament Pain Forms: [facility] ([place]) - Clinical Impression Clinical Impression: Abdominal pain affecting , Chronic pain disorder - Scribe Statement The provider has reviewed the documentation as recorded by the Claudia Oshea Provider Attestation: All medical record entries made by the Scribe were at my direction and personally dictated by me. I have reviewed the chart and agree that the record accurately reflects my personal performance of the history, physical exam, medical decision making, and the department course for this patient. I have also personally directed, reviewed, and agree with the discharge instructions and disposition.
[2018-02-13 20:16] VITALS: BP 97/60; PULSE 75; RESP 18; TEMP 98
== END 2018-02-13 20:16 | disposition home or self-care (01) ==
LOC: C.ER 18:23
DX: O26.892 Other specified pregnancy related conditions, second trimester (principal); G89.29 Other chronic pain; R10.30 Lower abdominal pain, unspecified; Z3A.17 17 weeks gestation of pregnancy
CPT/HCPCS: 80053; 81001; 84702; 85025; 96374; 99284; J2405

== ENCOUNTER 2018-03-13 14:29 | Emergency (ER) | payer OTHER ==
[2018-03-13] MEDS ORDERED: Lactated Ringer's 1,000 ML IV ONE (14:59)
[2018-03-13 15:26] LABS: BASO # 0.1 K/uL (0.0-0.2); BASO % 1.4 % (0.0-2.0); EOS % 0.1 % (0.0-4.0); LYMPH # 0.7 K/uL (1.0-4.3); LYMPH % 8.9 % (20.0-40.0); MEAN CELL VOLUME 85.7 fL (81.0-99.0); MEAN CORPUSCULAR HEMOGLOBIN 29.6 pg (27.0-31.0); MEAN CORPUSCULAR HGB CONC 34.5 g/dL (33.0-37.0); MEAN PLATELET VOLUME 7.8 fL (7.2-11.7); MONO # 0.4 K/uL (0.0-0.8); MONO % 4.8 % (0.0-10.0); NEUT # 6.3 K/uL (1.8-7.0); NEUT % 84.8 % (50.0-75.0); PLATELET COUNT 321 K/uL (130-400); RBC 4.04 Mil/uL (3.80-5.20); WHITE BLOOD COUNT 7.5 K/uL (4.8-10.8)
[2018-03-13 15:36] LABS: SQUAMOUS EPITHIAL 6 /hpf (0-5); URINE BACTERIA RARE (<OCC); URINE BILIRUBIN NEGATIVE (NEGATIVE); URINE BLOOD NEGATIVE (NEGATIVE); URINE CLARITY Hazy (Clear); URINE COLOR Amber (YELLOW); URINE GLUCOSE (UA) NORMAL (Normal); URINE LEUKOCYTE ESTERASE TRACE Leu/uL (Negative); URINE PROTEIN 1+ mg/dL (NEGATIVE); URINE UROBILINOGEN NORMAL mg/dL (0.2-1.0)
[2018-03-13 15:48] LABS: ALB/GLOB RATIO 1.1 (1.0-2.1); ALBUMIN 3.5 g/dL (3.5-5.0); ALT/SGPT 24 U/L (9-52); AST/SGOT 20 U/L (14-36); BLOOD UREA NITROGEN 9 mg/dL (7-17); CALCIUM 8.3 mg/dl (8.6-10.4); GFR NON-AFRICAN AMERICAN > 60
[2018-03-13 15:56] LABS: LYMPHOCYTE 9 % (20-40); MONOCYTE 3 % (0-10); NEUTROPHIL 88 % (50-75); PLATELET ESTIMATE NORMAL (NORMAL); TOTAL CELLS COUNTED 100
[2018-03-13 16:13] LABS: INR 1.2; PROTHROMBIN TIME 12.6 SECONDS (9.7-12.2)
[2018-03-13] MEDS ORDERED: Potassium Chloride 40 MEQ in Lactated Ringer's 1,000 ML IV SCH (16:45)
--- NOTE | 2018-03-13 16:49 | US ---
Indication: Estimated date of and cervical length Comparison: OB limited ultrasound performed 02/10/18 Technique: Real-time ultrasound was performed through the pelvis. Findings: There is a single living fetus in cephalic presentation. Amniotic fluid volume is within normal limits. Posterior placenta. The placenta is not previa. There are no adnexal masses or cysts evident. Cervix length measures approximately 3.5 cm. The study was performed for emergent evaluation, and the whole anatomic survey of the fetus was not performed. Limited visualized anatomy appears grossly unremarkable. This should be performed on an outpatient elective basis as clinically warranted. Measurements and calculations: Fetus has a composite sonographic age of 22 weeks 1 day. This calculation is based on the biparietal diameter, head circumference, abdominal circumference, and femur length. Estimated heart rate 144.4 beats per min. Estimated weight 461.3 g. Impression: Single living fetus with a composite sonographic age of 22 weeks 1 day. Estimated heart rate 144.4 beats per min. Cervix length measures approximately 3.5 cm.
[2018-03-13 18:19] LABS: AMYLASE 71 U/L (30-110); LIPASE 32 U/L (23-300)
[2018-03-13] MEDS ORDERED: Lactated Ringer's 1,000 ML IV STA (19:51)
--- NOTE | 2018-03-13 19:57 | C.PDOC ---
History Of Present Illness 23 y/o at 22 wks presented with c/o nausea , vomiting nad diarrhoea sicne last night. She c/o generalized abdominal pain " around the baby" Pt was seen earlier this month with similar complaints.Pt has no c/o VB or LOF. + FM. Pt was seen by her PMD this week with c/o abdominal pain and was instructed to f/u in 2 wks. Today she presents with abdominal pain and diarrhoea. Time Seen by Provider: 03/13/18 19:28 History Per: Patient History/Exam Limitations: no limitations Onset/Duration Of Symptoms: Days Current Symptoms Are (Timing): Still Present Severity: Moderate Quality Of Discomfort: "Pain" Associated Symptoms: Nausea, Vomiting, Diarrhea Exacerbating Factors: Movement Alleviating Factors: None Last Bowel Movement: Today Recent travel outside of the [place]: No Additional History Per: Patient Abnormal Vaginal Bleeding: No : 2 Past Medical History - Medical History PMH: Asthma, Depression, Fibromyalgia, Gall Bladder Disease, Migraine, Chronic Kidney Disease Denies: Diabetes, Hepatitis, HIV, HTN, Seizures, Sexually Transmitted Disease Surgical History: Family History: States: Unknown Family Hx - Social History Hx Tobacco Use: No Hx Alcohol Use: No Hx Substance Use: No - Immunization History Hx Tetanus Toxoid Vaccination: No Hx Influenza Vaccination: No Hx Pneumococcal Vaccination: No Physical Exam - Physical Exam Skin: Normal Color Gastrointestinal/Abdominal: Soft, Tenderness (in the lower quadrent area) Pelvic: Normal External Exam (VE: Closed/Thick and high) ED Course And Treatment - Laboratory Results Result Diagrams: 03/13/18 15:20 03/13/18 15:20 Lab Interpretation: Normal Medical Decision Making Medical Decision Making: Pt underwent Pelvic US with normal cervical length and findings. All the labs normal. Not in PTL. Pt was send to ED for further evaluation for abdominal pain. Pt was instructed nto f/u with the PMD upon discharge. Disposition Doctor Will See Patient In The: ED - Disposition Disposition Time: 20:00 Condition: GOOD - Clinical Impression Clinical Impression: Abdominal pain
[2018-03-13] MEDS ORDERED: Potassium Chloride 20 mEq ER Tab PO STA (20:04)
--- NOTE | 2018-03-13 20:11 | C.PDOC ---
History Of Present Illness 23 y/o female presents to the ED for evaluation of abdominal pain associated with vomiting and diarrhea since last night. Patient reports having the abdominal pain for 2 months, states it feels like her uterus is having a lot of pressure. Currently she is approximately 21 weeks . Patient was initially seen up in OB ED and now sent down to the ED for further management. Since 9pm last night she developed intractable vomiting and diarrhea. Patient reports having over 10 episodes of watery diarrhea, occasionally with some streaks of blood. She notes multiple episodes of non-bloody non-bilious vomiting, and has been unable to tolerate food or fluids. Patient also complains of chills but no fever. 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 [place] Time Seen by Provider: 03/13/18 19:28 Chief Complaint (Nursing): Abdominal Pain History Per: Patient History/Exam Limitations: no limitations Onset/Duration Of Symptoms: Days Current Symptoms Are (Timing): Still Present Associated Symptoms: Nausea, Vomiting, Diarrhea Alleviating Factors: None Last Bowel Movement: Today Past Medical History Reviewed: Historical Data, Nursing Documentation, Vital Signs - Medical History PMH: Asthma, Depression, Fibromyalgia, Gall Bladder Disease, Migraine, Chronic Kidney Disease Denies: Diabetes, Hepatitis, HIV, HTN, Seizures, Sexually Transmitted Disease Surgical History: Family History: States: No Known Family Hx - Social History Hx Tobacco Use: No Hx Alcohol Use: No Hx Substance Use: No - Immunization History Hx Tetanus Toxoid Vaccination: No Hx Influenza Vaccination: No Hx Pneumococcal Vaccination: No Review Of Systems Except As Marked, All Systems Reviewed And Found Negative. Constitutional: Positive for: Chills. Negative for: Fever Cardiovascular: Negative for: Chest Pain Respiratory: Negative for: Shortness of Breath Gastrointestinal: Positive for: Nausea, Vomiting, Abdominal Pain, Diarrhea. Negative for: Hematochezia, Hematemesis Genitourinary: Negative for: Dysuria, Frequency, Vaginal Bleeding Physical Exam - Physical Exam Appears: Non-toxic, In Acute Distress, Other (Tired appearing) Skin: Warm, Dry Head: Atraumatic, Normacephalic Eye(s): bilateral: Normal Inspection Oral Mucosa: Other (tacky mucus membranes) Throat: Normal (pharynx is clear), No Erythema Neck: Normal ROM Chest: Symmetrical Cardiovascular: Rhythm Regular, No Murmur Respiratory: Normal Breath Sounds, No Accessory Muscle Use, Other (No respiratory distress) Gastrointestinal/Abdominal: Soft, Tenderness (to the bilateral lower quadrants), No Mass, No Guarding, No Rebound Extremity: Normal ROM, No Pedal Edema, No Deformity Neurological/Psych: Oriented x3, Normal Speech Gait: Steady ED Course And Treatment - Laboratory Results Result Diagrams: 03/13/18 15:20 03/13/18 15:20 Medical Decision Making Medical Decision Making: Impression: Intractable vomiting and diarrhea, abdominal pain during Labs and ultrasound already completed via OB ED visit. Initial Plan: --LR IV fluids 1000ml @ 100mls/hr --D50 in LR fluids, after initial bolus --Potassium chloride 20meq PO --Pepcid 20 mg IVP --Zofran 8 mg IVP --Reassess after fluids and meds given Disposition - Disposition Disposition: HOME/ ROUTINE Disposition Time: 00:00 Condition: IMPROVED Additional Instructions: FOLLOW UP WITH YOUR SALES STRATEGY MANAGER SOON POSSIBLE BLAND DIET WITH PLENTY OF HYDRATING FLUIDS INCREASE POTASSIUM RICH FOODS Prescriptions: RX: Acetaminophen [Tylenol Extra Strength] 1,000 mg PO Q6 PRN #100 tablet PRN Reason: FEVER OR PAIN Ondansetron ODT [Zofran ODT] 1 odt PO Q6 PRN #20 odt PRN Reason: Nausea/Vomiting Instructions: Hypokalemia (DC), - The Fifth Month, - The Sixth Month, Round Ligament Pain Forms: Work Excuse - Clinical Impression Clinical Impression: Abdominal pain, Abdominal pain during intrauterine - Scribe Statement The provider has reviewed the documentation as recorded by the Claudia Lane Provider Attestation: All medical record entries made by the Claudia were at my direction and personall y dictated by me. I have reviewed the chart and agree that the record accurately reflects my personal performance of the history, physical exam, medical decision making, and the department course for this patient. I have also personally directed, reviewed, and agree with the discharge instructions and disposition.
[2018-03-13 20:27] VITALS: TEMP 98.7; O2SAT 100
[2018-03-13] MEDS ORDERED: Dextrose 5%/Lactated Ringer's 1,000 ML IV SCH (20:45)
[2018-03-13 21:47] VITALS: RESP 16
[2018-03-14 02:31] VITALS: BP 100/56; PULSE 109
== END 2018-03-13 22:29 | disposition home or self-care (01) ==
LOC: C.EROB 14:29
DX: O26.892 Other specified pregnancy related conditions, second trimester (principal); R10.84 Generalized abdominal pain; Z3A.22 22 weeks gestation of pregnancy
CPT/HCPCS: 76815; 80053; 81001; 82150; 83690; 85025; 85610; 85730; 86850; 86900; 94770; 96361; 96365; 96375; 99284; J2405; J3480; J7120

== ENCOUNTER 2018-03-31 21:10 | Emergency (ER) | payer OTHER ==
[2018-03-31 21:42] VITALS: BMI 34.3
[2018-03-31 22:21] LABS: SQUAMOUS EPITHIAL 5 /hpf (0-5); URINE AMORPHOUS SEDIMENT MODERATE /ul (<OCC); URINE BACTERIA OCC (<OCC); URINE BILIRUBIN NEGATIVE (NEGATIVE); URINE BLOOD NEGATIVE (NEGATIVE); URINE CLARITY Hazy (Clear); URINE COLOR Yellow (YELLOW); URINE GLUCOSE (UA) NORMAL (Normal); URINE LEUKOCYTE ESTERASE TRACE Leu/uL (Negative); URINE PROTEIN NEGATIVE (NEGATIVE); URINE UROBILINOGEN NORMAL mg/dL (0.2-1.0)
[2018-03-31] MEDS ORDERED: Lactated Ringer's 1,000 ML IV SCH (23:00)
[2018-03-31 23:38] LABS: BASO % 0.6 % (0.0-2.0); EOS # 0.1 K/uL (0.0-0.7); EOS % 1.7 % (0.0-4.0); HEMOGLOBIN 10.3 g/dL (11.0-16.0); LYMPH # 2.6 K/uL (1.0-4.3); LYMPH % 33.8 % (20.0-40.0); MEAN CELL VOLUME 86.1 fL (81.0-99.0); MEAN CORPUSCULAR HEMOGLOBIN 29.7 pg (27.0-31.0); MEAN CORPUSCULAR HGB CONC 34.5 g/dL (33.0-37.0); MEAN PLATELET VOLUME 7.6 fL (7.2-11.7); MONO # 0.5 K/uL (0.0-0.8); MONO % 6.4 % (0.0-10.0); NEUT # 4.5 K/uL (1.8-7.0); NEUT % 57.5 % (50.0-75.0); RBC 3.48 Mil/uL (3.80-5.20); RED CELL DISTRIBUTION WIDTH 13.1 % (11.5-14.5); WHITE BLOOD COUNT 7.8 K/uL (4.8-10.8)
[2018-03-31 23:50] LABS: ALB/GLOB RATIO 1.1 (1.0-2.1); ALBUMIN 3.2 g/dL (3.5-5.0); ALT/SGPT 19 U/L (9-52); AST/SGOT 17 U/L (14-36); BLOOD UREA NITROGEN 10 mg/dL (7-17); CALCIUM 8.5 mg/dl (8.6-10.4); GFR NON-AFRICAN AMERICAN > 60
--- NOTE | 2018-04-01 02:19 | OBHP ---
Datetime: 04/01/2018 02:12 IP Adm Impression: No Active Labor IP Admit Plan: Observation/Evaluation Admit Comment, IP Provider: PT PRESENTS TODAY WITH COMPLAINTS BACK PAIN THAT RADIATES TO HER ABDOMEN WITH PAIN AROUND HER AMNIOTIC SAC. THIS IS THE FIRST EPISODE THAT THIS HAS OCCURRED. LABS: CMP: CREATININE: LOW, ALBUMIN: LOW, GLUCOSE LOW, CBC: NORMAL. OB US: PENDING A/P IUP @ 24 10/19 1) VSS: AFEBRILE. 2) PAIN MOST LIKELY D/T POOR NUTRITION AND DEHYDRATION. - PT ADVISED TO EAT 5 SMALL MEALS PER DAY AND DRINK 1-2l PER DAY. - FOLLOW UP WITH HER PRIMARY CARE PHYSICAN Pelvic Type - PN: Adequate Extremities - PN: Normal Abdomen - PN: Normal Back - PN: Normal Breast - PN: Normal Lungs - PN: Normal Heart - PN: Normal Thyroid - PN: Normal Neurologic - PN: Normal HEENT - PN: Normal General - PN: Normal FHR - Baseline A Provider: 150 EGA AdmitDate IP: 24.6 IP Chief Complaint: Maternal discomfort NICHD Variability Prov Fetus A: Moderate 6-25bpm NICHD Accel Fetus A IP Provider: [id number] Genitourinary Exam: Normal DTRs - PN: Normal
[2018-04-01 07:54] VITALS: BP 104/50; PULSE 66; RESP 18; TEMP 99
--- NOTE | 2018-04-01 08:11 | US ---
Pelvic ultrasound HISTORY: . Pelvic pain. Comparison: None available. Technique: Real-time sonography was performed through the pelvis. FINDINGS: Please note this was a limited study for viability purposes only. Dedicated anatomic survey is recommended to assess for anomaly. Cervix measures 4 centimeters. Fundal placenta. Cephalic presentation. heart rate of 134 beats per minute. Mean ultrasound age of approximately 24 weeks and 5 days. Biparietal diameter measures 6.1 centimeters, head circumference measures 22.1 centimeters, abdominal circumference measures 20.4 centimeters, and femur length measures 4.5 centimeters Impression: Please note this was a limited study for viability purposes only. Dedicated anatomic survey is recommended to assess for anomaly. Intrauterine corresponding to a mean ultrasound age of approximately 24 weeks and 5 days. heart rate of 134 beats per minute. Fundal placenta. A preliminary report was generated at 1:39 a.m. on 04/01/[address] Ashley Santoro from [facility].
== END 2018-04-01 03:15 | disposition home or self-care (01) ==
LOC: C.EROB 21:10
DX: O26.892 Other specified pregnancy related conditions, second trimester (principal); R10.9 Unspecified abdominal pain; Z3A.24 24 weeks gestation of pregnancy

== ENCOUNTER 2018-04-19 19:40 | Emergency (ER) | payer OTHER ==
[2018-04-19 20:26] VITALS: BMI 35.3
[2018-04-19 20:32] LABS: SQUAMOUS EPITHIAL 4 /hpf (0-5); URINE BACTERIA RARE (<OCC); URINE BILIRUBIN NEGATIVE (NEGATIVE); URINE BLOOD NEGATIVE (NEGATIVE); URINE CLARITY Clear (Clear); URINE COLOR Yellow (YELLOW); URINE GLUCOSE (UA) NORMAL (Normal); URINE PROTEIN 1+ mg/dL (NEGATIVE)
[2018-04-19 20:33] LABS: URINE LEUKOCYTE ESTERASE TRACE Leu/uL (Negative)
--- NOTE | 2018-04-19 21:30 | OBHP ---
Datetime: 04/19/2018 20:58 IP Chief Complaint Other: Generalized abdominal pain and "spine pain" Admit Comment, IP Provider: 23 y.o. , LMP 10/10/17, RILEY 07/16/18, EGA 27w 3d c/o generalized ab dominal pain and "spine pain". Patient came directly from visit: staes was put on monitor an d was told to be zoltan. patient states did not have a cervical exam. Onset of abdominal pain "s cristiane the beginning of the ... second trimester" (+) AFM; denies LOF, VB. Last had intercour se "yesterday" - per FOB; though patient denies. [facility] - no records available. P Ob: 12/10/16, C/S, 34 wks, abruptio placentae, male, 5lb 2oz. No blood transfusion; states was re admitted for "near paralysis". Diagnosis of fibromyalgia made at this time. 2016, Spont ab, 4 weeks, no D_C PMH: 1) 11/2016, fibromyalgia. 2) h/o asthma - since . Doesn't recall last attack. Takes inh TID. 3) Migraine, severe. 4) 2017, "kidney infection" during ; hospitalized x 2 weeks PSH: C/S Allergy: omeperazole = fever, vomiting No food allergy Meds: not taking vitamins Soc Hx: denies tobacco, illicit drug or EtOH use. Lives with her grandmother and her son. With FOB . Works in [employer] Fam Hx: both mother and father "near 50 y.o." (+)fam h/o DM P.E.: as above. Obese, in NAD. Awake, alert, oriented to time, person and place. Pleasant and coop erative - U/A: trace leuk esterase; S.G. 1.032 Assessment: 23 y.o. P0111, 27w 3d, prev C/S, prev PT del, h/o fibromyalgia - generalized abdominal pain. Not in labor. FHR appropriate for gestational age. Based on U/A - most likely dehydration. Pat ient counseled re: increase p.o. intake of water. Plan: 1) Discharge home 2) Keep scheduled appointment: 05/03/18 3) Reviewed S/S labor/ pre-eclampsia Pelvic Type - PN: Adequate Extremities - PN: Normal Abdomen - PN: Normal Back - PN: Normal Breast - PN: Not Done Lungs - PN: Normal Heart - PN: Normal Neurologic - PN: Normal HEENT - PN: Normal General - PN: Normal FHR - Baseline A Provider: 155 Membranes, Provider: Intact Contraction Comments Provider: none Comments, ACOG Physical Exam: Abdomen: Obese. Gravid. Soft, Non tender All other systems reviewed and are negative Gestation - Est Wks by US: 27w 3d EGA AdmitDate IP: 27.3 Vital Signs Provider: Reviewed; Within Normal Limits IP Chief Complaint: Other NICHD Variability Prov Fetus A: Moderate 6-25bpm NICHD Decel Fetus A IP Provider: None Dilatation, Provider: 0 Effacement, Provider: 0 Station, Provider: high Genitourinary Exam: Normal DTRs - PN: Not Done
[2018-04-20 01:28] VITALS: BP 114/56; PULSE 83; TEMP 97.8
== END 2018-04-19 21:15 | disposition home or self-care (01) ==
LOC: C.EROB 19:40
DX: O26.892 Other specified pregnancy related conditions, second trimester (principal); R10.84 Generalized abdominal pain; Z3A.27 27 weeks gestation of pregnancy